=== PATIENT | male | born 1960 ===

== ENCOUNTER 2018-09-01 20:14 | Emergency (ER) | payer BC, SELFPAY ==
[2018-09-01 20:28] VITALS: BP 154/90; PULSE 78; RESP 18; TEMP 37; O2SAT 96
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
[2018-09-01] MEDS: Acetaminophen 500 MG TAB 1000 MG PO (20:49)
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
== END 2018-09-01 21:51 | disposition home or self-care (01) ==
LOC: ER 22:07
PROVIDERS: Emergency Provider Emergency Medicine
DX: S39.012A Strain of muscle, fascia and tendon of lower back, initial encounter (principal); S40.021A Contusion of right upper arm, initial encounter; V59.88XA Occupant (driver) (passenger) of pick-up truck or van injured in other specified transport accidents, initial encounter
CPT/HCPCS: 99283; 72100; 99282

== ENCOUNTER 2025-03-07 11:57 | Outpatient (CLI) | payer BC, SELFPAY ==
--- NOTE | 2025-03-07 11:45 | RT.EKG_ITS ---
APPROVED REPORT Exam: Resting ECG Reason for Exam: CAD Patient Location: O HR:65 bpm ECG Measurements Heart Rate 65 AXIS ME 166 P 21 QRSd 116 QRS -5 QT 401 T 29 QTc 417 Conclusion Sinus rhythm...normal P axis, V-rate 50- 99 Nonspecific intraventricular conduction delay...
== END 2025-03-07 11:58 | disposition home or self-care (01) ==
LOC: DI.CARD 11:58
PROVIDERS: PCP Emergency Medicine Undersea and Hyperbaric Medicine; Visit Provider Registered Nurse
DX: I51.9 Heart disease, unspecified (principal); I25.10 Atherosclerotic heart disease of native coronary artery without angina pectoris
CPT/HCPCS: 93010

== ENCOUNTER 2025-03-29 02:16 | Outpatient (CLI) | payer BC, SELFPAY ==
--- NOTE | 2025-03-29 06:30 | DI.US_ITS ---
APPROVED REPORT EXAM: Comprehensive 2D, Doppler, and color-flow Echocardiogram Patient Location: Out-Patient Clinical Rehabilitation Coordinator: Coretta Munoz RDCS (AE) Indications: Ascending thoracic aortic aneurysm Other Information Study Quality: Good Conclusion Normal left ventricular wall thickness and chamber size. Ejection fraction is 60%. Wall motion is normal Normal right ventricular size and function Both atria are normal in size There is no structural or hemodynamically significant valvular disease Ascending aorta measures 4 cm Wall motion Left Ventricle The left ventricle is normal size. The left ventricular systolic function is normal. The left ventricular ejection fraction is within the normal range. There is normal left ventricular wall thickness. There is normal LV segmental wall motion. There is no ventricular septal defect visualized. LVEF is 60%. Right Ventricle The right ventricle is normal size. The right ventricular systolic function is normal. Atria The left atrium size is normal. The right atrium size is normal. Atrial septum is thin and hypermobile Aortic Valve The aortic valve is normal in structure. Aortic valve is trileaflet. There is no aortic valvular stenosis. No aortic regurgitation is present. Mitral Valve The mitral valve is normal in structure. No evidence of mitral valve stenosis. Trace mitral regurgitation. Tricuspid Valve The tricuspid valve is normal in structure. There is no tricuspid valve stenosis. Trace tricuspid regurgitation. Unable to assess PA pressure. Pulmonic Valve The pulmonary valve is normal in structure. There is no pulmonic valvular stenosis. Mild pulmonic regurgitation. Great Vessels The aortic root is normal in size. The ascending aorta is moderately dilated. Aortic arch is not well visualized. The IVC was not visualized. Technically limited subcostal imaging. Pericardium There is no pericardial effusion. 2D Dimensions IVSD d PLAX 1.00 cm M: 0.6-1.2 Ao Root d 3.66 cm M: 3.1 - 3.7 LVPW d PLAX 1.01 cm M: 0.6 - 1.2 Ao Asc Diam d 4.00 cm M: 2.6 - 3.4 LVID d PLAX 5.60 cm M: 4.2 - 5.8 LVDs 3.91 cm M: 2.5 - 4.0 LV EF Teichholz 56.6 % FS 29.98 % LV EDV (Teich) 153.1 mL LV ESV (Teich) 66.5 mL M-Mode TAPSE 2.55 cm (M/F) >1.7 Auto EF LV EDV A4C 177.2 mL LV EDV A2C 169.4 mL LV EDV BP 173.2 mL LV ESV A4C 71.1 mL LV ESV A2C 69.1 mL LV ESV BP 69.7 mL LVEF(%) A4C 59.9 % LVEF(%) A2C 59.2 % LVEF(%) BP 59.8 % LV SV A4C 106.1 ml LV SV A2C 100.3 ml LV SV BP 103.5 ml LV CO A4C 6.1 L/min LV CO A2C 6.3 L/min LV CO BP 6.2 L/min HR A4C 57.61 BPM HR A2C 62.83 BPM LV EDV Index (BP) LA Volume LA Length A4C 5.1 cm LA Length A2C 5.4 cm LA Area A4C s 20.77 cm2 LA Area A2C s 22.71 cm2 LA Vol A4C A-L 72.04 mL LA Vol A2C A-L 81.02 mL LA Vol Biplane A-L 78.8 mL LA Vol/BSA A4C A-L LA Vol/BSA A2C A-L LA Vol/BSA BP A-L 32.7 mL/m2 LA Vol A4C MOD 68.5 mL LA Vol A2C MOD 77.1 mL LA Vol BP MOD 74.7 mL RA Volume RA Area A4C 17.6 cm2 RA ESV A4C (A-L) 42.2mL RA Vol/BSA A4C A-L RA Length A4C 6.2 cm RA ESV A4C (MOD) 39.0mL LV Diastology MV E' medial 0.069 (>0.07 m/s) MV E Vmax 0.61 (0.4-1.3 m/s) MV E/E' MED 8.77 (<14) MV A Vmax 0.90 (0.4-1.3 m/s) E/A Ratio 0.7 Aortic Valve AoV Vmax 1.19 m/s LVOT Vmax 0.91 m/s AoV Peak Grad 5.7 mmHg LVOT Peak Grad 3.3 mmHg AoV Area (Vmax) 2.67 cm2 LVOT VTI 0.245 m AoV VTI 0.317 m LVOT Mean Grad 1.9 mmHg AoV Mean Rajiv. 0.88 m/s LVOT SV 85.28 mL AoV Mean Grad 3.5 mmHg LVOT Diam s 2.10 cm AoV Area (VTI) 2.69 cm2 AV Regurg Peak Gr. 5.68 mmHg Velocity Ratio 0.76 Mitral Valve MV DT 240 (160-240 msec) MV Vmax TIPS 0.84 m/s MV Mean Grad 0.8 (<2mmHg) MV VTI 0.236 m Pulmonary Valve PV Vmax 0.90 (0.5-1.5 m/s) RVOT Vmax 0.57 m/s PV Peak Grad 3.3 mmHg RVOT Peak Gr. 1.3 mmHg PV Mean Rajiv 0.70 m/s RVOT VTI 0.135 m PV Mean Grad 2.1 mmHg RVOT Mean Gr. 0.7 mmHg Tricuspid Valve TV S' 0.14 m/s
== END 2025-03-29 02:36 ==
LOC: DI 02:16
PROVIDERS: PCP Emergency Medicine Undersea and Hyperbaric Medicine; Visit Provider Internal Medicine Cardiovascular Disease
DX: I71.21 Aneurysm of the ascending aorta, without rupture (principal)
CPT/HCPCS: 93306